=== PATIENT | male | born 1975 | race African-American/Black ===

== ENCOUNTER 2018-12-19 16:12 | Emergency (ER) | payer SELFPAY ==
[2018-12-19] MEDS ORDERED: Ondansetron 4 MG/2 ML SDV IVPUSH PRN (16:28)
[2018-12-19] MEDS ORDERED: Lactated Ringers 1,000 ML IV SCH (16:30)
[2018-12-19] MEDS ORDERED: Alum Hydrox/Mag Hydrox/Simeth 30 ML, Lidocaine 2% 15 ML PO ONE ×2 (16:37)
--- NOTE | 2018-12-19 16:59 | EDM.PDOC ---
ED HPI GENERAL MEDICAL PROBLEM - General Chief Complaint: Abdominal Pain Stated Complaint: ABD Pain Time Seen by Provider: 12/19/18 16:30 Source of Information: Reports: Patient History Limitations: Reports: No Limitations - History of Present Illness INITIAL COMMENTS - FREE TEXT/NARRATIVE: Patient presents to ER with complaints of upper quadrant "burning". States was doing well until around 130 pm today. Had eaten pizza at [email or web address] for dinner today so questioned "food poisoning". Vomited x2, noted to be red and was concerned it was blood. He has also had one diarrhea stool, no noted blood. He continues to have burning in his abdomen. No known history of PUD. Denies fever. Does continue to feel nauseated. History appendectomy. Currently not on any medications. Onset: Today, Sudden Duration: Hour(s): Location: Reports: Abdomen Quality: Reports: Burning Severity: Severe Improves with: Reports: None Associated Symptoms: Reports: Nausea/Vomiting. Denies: Confusion, Chest Pain, Cough, Diaphoresis, Fever/Chills, Loss of Appetite, Shortness of Breath, Syncope , Weakness Upper Abdominal Pain Score (Numeric/FACES): 10 - Related Data Allergies Allergy/AdvReac Type Severity Reaction Status Date / Time No Known Allergies Allergy Verified 12/19/18 16:26 Home Meds: Home Meds . [No Known Home Meds] 12/19/18 [History] Past Medical History - Past Health History Medical/Surgical History: Denies Medical/Surgical History Social & Family History - Family History Family Medical History: Noncontributory - Tobacco Use Smoking Status *Q: Unknown Ever Smoked ED ROS GENERAL - Review of Systems Review Of Systems: See Below Constitutional: Denies: Fever, Chills, Malaise, Weakness, Fatigue, Decreased Appetite HEENT: Reports: No Symptoms Respiratory: Denies: Shortness of Breath, Cough Cardiovascular: Denies: Chest Pain, Edema, Lightheadedness Endocrine: Denies: Fatigue GI/Abdominal: Reports: Abdominal Pain, Diarrhea, Hematemesis, Nausea, Vomiting. Denies: Hematochezia, Melena : Reports: No Symptoms Musculoskeletal: Reports: No Symptoms Skin: Reports: No Symptoms Neurological: Reports: No Symptoms Psychiatric: Reports: No Symptoms ED EXAM, GI/ABD - Physical Exam Exam: See Below Exam Limited By: No Limitations General Appearance: Alert, WD/WN, Mild Distress Ears: Normal External Exam, Normal TMs Nose: Normal Inspection, Normal Mucosa, No Blood Throat/Mouth: Normal Inspection, Normal Oropharynx Head: Normocephalic Neck: Normal Inspection, Supple, Non-Tender Respiratory/Chest: No Respiratory Distress, Lungs Clear, Normal Breath Sounds Cardiovascular: Regular Rate, Rhythm GI/Abdominal Exam: Normal Bowel Sounds, Soft, Tender (midepigastric/LUQ) Extremities: Normal Inspection, No Pedal Edema Neurological: Alert, Oriented Skin Exam: Warm, Dry Course - Vital Signs Last Recorded V/S: Last Vital Signs Temp 97.8 F 12/19/18 16:14 Pulse 73 12/19/18 16:14 Resp 18 12/19/18 16:14 BP 105/65 12/19/18 16:14 Pulse Ox 99 12/19/18 16:14 - Orders/Labs/Meds Orders: Active Orders 24 hr Category Date Time Status Abdomen 2V AP Flat Upright [CR] Stat Exams 12/19/18 16:28 Taken Labs: Laboratory Tests 12/19/18 12/19/18 12/19/18 Range/Units 16:28 16:28 16:28 WBC 9.6 (5.0-10.0) 10^3/uL RBC 4.97 (4.50-6.00) 10^6/uL Hgb 15.8 (14.0-18.0) g/dL Hct 44.8 (40.0-54.0) % MCV 90.1 (82.0-94.0) fL MCH 31.8 (27.0-32.0) pg MCHC 35.3 (33.0-38.0) g/dL RDW Coeff of [place] 14.5 (11.0-15.0) % Plt Count 252 (150-400) 10^3/uL Neut % (Auto) 73.7 (35-85) % Lymph % (Auto) 21.2 (10-55) % [place] % (Auto) 4.3 (0-16) % Eos % (Auto) 0.4 (0-5) % Baso % (Auto) 0.4 (0-3) % Neut # (Auto) 7.07 H (1.80-7.00) 10^3/uL Lymph # (Auto) 2.03 (1.00-4.80) 10^3/uL [place] # (Auto) 0.41 (0.00-0.80) 10^3/uL Eos # (Auto) 0.04 (0.00-0.45) 10^3/uL Baso # (Auto) 0.04 10^3/uL Sodium 141 (136-145) mEq/L Potassium 3.6 (3.5-5.0) mEq/L Chloride 104 (98-106) mEq/L Carbon Dioxide 26 (21-32) mmol/L BUN 8 (7-18) mg/dL Creatinine 1.2 (0.7-1.3) mg/dL Est Cr Clr Drug Dosing 88.02 mL/min Estimated GFR (MDRD) > 60 (>=60) mL/min Glucose 95 (75-99) mg/dL Calcium 9.9 (8.4-10.1) mg/dL Total Bilirubin 0.2 (0.0-1.0) mg/dL AST 22 (15-37) U/L ALT 25 (12-78) U/L Alkaline Phosphatase 71 (46-116) U/L C-Reactive Protein 0.4 (0.2-0.8) mg/dL Total Protein 8.2 (6.4-8.2) g/dL Albumin 4.1 (3.4-5.0) g/dL Amylase 113 (25-115) U/L Lipase 112 (73-393) U/L Urine Color Yellow (YELLOW) Urine Appearance Cloudy (CLEAR) Urine pH 8.5 H (4.5-8.0) Ur Specific [place] 1.020 (1.003-1.020) Urine Protein 30 H (NEGATIVE) mg/dL Urine Glucose (UA) Negative (NEGATIVE) mg/dL Urine Ketones Negative (NEGATIVE) mg/dL Urine Occult Blood Negative (NEGATIVE) Urine Nitrite Negative (NEGATIVE) Urine Bilirubin Negative (NEGATIVE) Urine Urobilinogen 0.2 (0.2-1.0) EU/dL Ur Leukocyte Esterase Negative (NEGATIVE) Urine RBC Not seen (0-5) /HPF Urine WBC 0-5 (0-5) /HPF Amorphous Sediment Many H (NOT SEEN) /HPF Meds: Medications Discontinued Medications Generic Name Dose Route Start Last Admin Trade Name Freq PRN Reason Stop Dose Admin Al Hydroxide/Mg Hydroxide 30 0 ml 12/19/18 16:37 12/19/18 16:47 ml/ Lidocaine HCl 15 ml PO 12/19/18 16:38 45 ml ONETIME ONE Administration Lactated Ringer's 1,000 mls @ 250 mls/hr 12/19/18 16:30 12/19/18 16:48 Ringers, Lactated IV 250 mls/hr ASDIRECTED CHRISTIAN Administration Ondansetron HCl 4 mg 12/19/18 16:28 12/19/18 16:47 Zofran IVPUSH 4 mg Q6H PRN Administration Nausea Pantoprazole Sodium 40 mg 12/19/18 17:23 12/19/18 17:31 Protonix Iv IVPUSH 12/19/18 17:24 40 mg ONETIME ONE Administration Sucralfate 1 gm 12/19/18 20:00 12/19/18 18:12 Carafate PO 1 gm QIDACANDBED CHRISTIAN Administration - Re-Assessments/Exams Free Text/Narrative Re-Assessment/Exam: 12/19/18 Labs all normal. Abdominal xrays normal. Has been given zofran and a GI cocktail. Admits to mild relief of discomfort. Protonix IV and fluids given. No further nausea or vomiting. Does still have mild burning in stomach but has improved some. Discussed possible gastritis versus gastroenteritis versus PUD. Will treat with Protonix and Carafate. If hematemesis occurs, continues to have ongoing pain, may need to consider EGD versus CT scan of abdomen. Patient verbalizes understanding. Departure - Departure Time of Disposition: 17:54 Disposition: Home, Self-Care 01 Condition: Fair Clinical Impression: Gastritis - Discharge Information *PRESCRIPTION DRUG MONITORING PROGRAM REVIEWED*: No *COPY OF PRESCRIPTION DRUG MONITORING REPORT IN PATIENT COMFORT: No Instructions: Gastritis, Adult, [id number] Referrals: PCP,Unknown [Primary Care Provider] - Forms: ED Department Discharge Additional Instructions: 1. Rest 2. Push fluids 3. [place] diet 4. Avoid stimulants, ie. caffeine, spicy foods, nicotine, alcohol and ibuprofen 5. Follow up in am if persisting concerns. - My Orders Last 24 Hours: My Active Orders 12/19/18 16:28 Abdomen 2V AP Flat Upright [CR] Stat - Assessment/Plan Last 24 Hours: My Active Orders 12/19/18 16:28 Abdomen 2V AP Flat Upright [CR] Stat
[2018-12-19 17:19] LABS: CHLORIDE,CL 104 mEq/L (98-106); SODIUM,NA 141 mEq/L (136-145)
[2018-12-19] MEDS ORDERED: Pantoprazole 40 MG Vial IVPUSH ONE (17:23)
[2018-12-19] MEDS ORDERED: Sucralfate 1 GM Tab PO SCH (20:00)
== END 2018-12-19 18:27 | disposition home or self-care (01) ==
LOC: CC.ED 16:12
DX: K29.70 Gastritis, unspecified, without bleeding (principal)
CPT/HCPCS: 36415; 74019; 80053; 81001; 82150; 83690; 85025; 86140; 96361; 96374; 96375; 99284-25; A9270-GY; C9113; J2405; J7120